=== PATIENT | female | born 1975 | race American Indian/Alaskan Native ===

== ENCOUNTER 2018-02-21 09:31 | Emergency (ER) | payer OTHER ==
[2018-02-21 09:40] VITALS: TEMP 97.7
--- NOTE | 2018-02-21 10:28 | C.PDOC ---
Time Seen by Provider: 02/21/18 10:19 Chief Complaint (Nursing): Headache Past Medical History Vital Signs: Last Vital Signs Temp 97.7 F 02/21/18 09:36 Pulse 90 02/21/18 10:26 Resp 20 02/21/18 10:26 BP 154/109 H 02/21/18 10:26 Pulse Ox 96 02/21/18 10:26 - Medical History PMH: HTN (no meds) - Social History Hx Alcohol Use: Yes Hx Substance Use: No - Immunization History Hx Tetanus Toxoid Vaccination: Yes Hx Influenza Vaccination: Yes Hx Pneumococcal Vaccination: Yes ED Course And Treatment O2 Sat by Pulse Oximetry: 96 Disposition - Disposition Forms: [employer] (Estonian)
[2018-02-21] MEDS ORDERED: Labetalol 25mg/5ml Syringe IVP STA (10:32)
[2018-02-21] MEDS ORDERED: Dexamethasone 4 mg/1 ml IVP STA (10:33)
[2018-02-21] MEDS ORDERED: Magnesium Sulfate 1 gm in D5W 1 GM/100 ML BAG IVPB STA (10:33)
--- NOTE | 2018-02-21 10:39 | C.PDOC ---
History Of Present Illness 43 y/o female comes in complaining of intermittent migraine that is worse than usual for the past 2 weeks. Patient states it is normally relieved with excedrin but it still persists. She notes that pain worsens when she bends forward or lays flat. Patient denies any trauma. Patient has history of hypertension but she has been noncompliant with medications for the past year due to lack of insurance. Denies nausea, vomiting, or other associated symptoms. WORSE THAN USUAL MIGRAINE INTERMIT X 2 WEEKS. PS NORMALLY RELIEVED W EXCEDRIN BUT STILL PERSIST. PAIN WORSE WHEN BENDS FORWARD OR LAYS FLAT. NO TRAUMA. HO HTN BUT NONCOMPLIANT W MEDS X 1 YR DUE TO LACK OF INSURANCE. NO NV, OTHER ASSOC SX EXAM MILD DIST NONTOXIC HEENT NO PHOTOPHOBIA NECK SUPPLE NEURO NO FOCAL DEF REMAINDER NEG Time Seen by Provider: 02/21/18 10:19 Chief Complaint (Nursing): Headache History Per: Patient History/Exam Limitations: no limitations Onset/Duration Of Symptoms: Days Current Symptoms Are (Timing): Still Present Past Medical History Reviewed: Historical Data, Nursing Documentation, Vital Signs Vital Signs: Last Vital Signs Temp 97.7 F 02/21/18 09:36 Pulse 90 02/21/18 10:26 Resp 20 02/21/18 10:26 BP 154/109 H 02/21/18 10:26 Pulse Ox 96 02/21/18 10:28 - Medical History PMH: HTN (no meds) Family History: States: No Known Family Hx - Social History Hx Alcohol Use: Yes Hx Substance Use: No - Immunization History Hx Tetanus Toxoid Vaccination: Yes Hx Influenza Vaccination: Yes Hx Pneumococcal Vaccination: Yes Review Of Systems Except As Marked, All Systems Reviewed And Found Negative. Constitutional: Negative for: Fever, Chills Cardiovascular: Negative for: Chest Pain Respiratory: Negative for: Shortness of Breath Gastrointestinal: Negative for: Nausea, Vomiting Musculoskeletal: Negative for: Neck Pain Skin: Negative for: Rash Neurological: Positive for: Other (Migraine) Physical Exam - Physical Exam Appears: Non-toxic, In Acute Distress (mild distress) Skin: Warm, Dry Head: Atraumatic, Normacephalic Eye(s): bilateral: Normal Inspection, Other (No photophobia) Oral Mucosa: Moist Neck: Supple Chest: Symmetrical Cardiovascular: Rhythm Regular, No Murmur Respiratory: Normal Breath Sounds, No Rales, No Rhonchi, No Wheezing Gastrointestinal/Abdominal: Soft, No Tenderness Extremity: Bilateral: Atraumatic, Normal Color And Temperature, Normal ROM Neurological/Psych: Oriented x3, Normal Speech, Other (No focal deficits) ED Course And Treatment - Laboratory Results Result Diagrams: 02/21/18 11:16 02/21/18 11:16 O2 Sat by Pulse Oximetry: 96 (RA) Pulse Ox Interpretation: Normal - CT Scan/US Head CT Other Rad Studies (CT/US): Read By Radiologist, Radiology Report Reviewed CT/US Interpretation: FINDINGS: HEMORRHAGE: No intracranial hemorrhage. BRAIN: Normal rolle-white matter differentiation and density are appreciated throughout the cerebrum and cerebellum with the brainstem appearing unremarkable as well. There is no mass effect. There is no suspicious extra-axial fluid collection and the midline brain anatomy appears diffusely unremarkable. VENTRICLES: Unremarkable. No hydrocephalus. CALVARIUM: Bilateral parietal foramina are appreciated, right greater than left. The right parietal foramina measures 9 mm. Because of potential associated vascular anomalies, follow-up contrast CT of the head is advised or MRI. PARANASAL SINUSES: Unremarkable as visualized. No significant inflammatory changes. MASTOID AIR CELLS: Unremarkable as visualized. No inflammatory changes. OTHER FINDINGS: None. IMPRESSION: Normal appearing brain parenchyma throughout. Note is made of bilateral parietal foramina with right-sided foraminal large enough to require elective contrast brain imaging either by CT or MRI exclude underlying potential vascular anomaly/pathology. Exam otherwise unremarkable. Progress Note: Head CT and blood work ordered. Patient was given decadron IV, magnesium sulfate IV, reglan IV, Toradol IV, Trandate IV, and tylenol PO. Progress - Re-Evaluation Re-evaluation Note: 02/21/18 11:27 154/98 W/O HTN TX. NEURO INTACT 02/21/18 11:55 FEELS BETTER, NEURO INTACT - Data Reviewed Data Reviewed: Lab, Diagnostic imaging, Old records Disposition Counseled Patient/Family Regarding: Studies Performed, Diagnosis - Disposition Referrals: [facility] [Outside] [facility] [Outside] Disposition: HOME/ ROUTINE Disposition Time: 11:55 Condition: IMPROVED Prescriptions: Hydrochlorothiazide [Microzide] 12.5 mg PO DAILY #30 cap Ibuprofen [Motrin] 600 mg PO Q6 #30 tab Metoclopramide [Reglan] 1 tab PO TID PRN #25 tab PRN Reason: Nausea/Vomiting Instructions: High Blood Pressure (DC), Migraine Headache (DC) Forms: [employer] (Sami) - Clinical Impression Clinical Impression: Migraine, Hypertensive urgency - Scribe Statement The provider has reviewed the documentation as recorded by the Pura Gallo Provider Attestation: All medical record entries made by the Asuncionibleonela were at my direction and personally dictated by me. I have reviewed the chart and agree that the record accurately reflects my personal performance of the history, physical exam, medical decision making, and the department course for this patient. I have also personally directed, reviewed, and agree with the discharge instructions and disposition.
[2018-02-21] MEDS ORDERED: Magnesium Sulfate 1 gm in D5W 1 GM/100 ML BAG IVPB ONE (10:52)
--- NOTE | 2018-02-21 11:12 | CT ---
Date of service: 02/21/2018 PROCEDURE: CT HEAD WITHOUT CONTRAST. HISTORY: Headache HTN COMPARISON: None available. TECHNIQUE: Axial computed tomography images were obtained through the head/brain without intravenous contrast. Radiation dose: Total exam DLP = 1115.86 mGy-cm. This CT exam was performed using one or more of the following dose reduction techniques: Automated exposure control, adjustment of the mA and/or kV according to patient size, and/or use of iterative reconstruction technique. FINDINGS: HEMORRHAGE: No intracranial hemorrhage. BRAIN: Normal rolle-white matter differentiation and density are appreciated throughout the cerebrum and cerebellum with the brainstem appearing unremarkable as well. There is no mass effect. There is no suspicious extra-axial fluid collection and the midline brain anatomy appears diffusely unremarkable. VENTRICLES: Unremarkable. No hydrocephalus. CALVARIUM: Bilateral parietal foramina are appreciated, right greater than left. The right parietal foramina measures 9 mm. Because of potential associated vascular anomalies, follow-up contrast CT of the head is advised or MRI. PARANASAL SINUSES: Unremarkable as visualized. No significant inflammatory changes. MASTOID AIR CELLS: Unremarkable as visualized. No inflammatory changes. OTHER FINDINGS: None. IMPRESSION: Normal appearing brain parenchyma throughout. Note is made of bilateral parietal foramina with right-sided foraminal large enough to require elective contrast brain imaging either by CT or MRI exclude underlying potential vascular anomaly/pathology. Exam otherwise unremarkable.
[2018-02-21] MEDS ORDERED: Labetalol 25mg/5ml Syringe IV STA (11:19)
[2018-02-21 11:22] LABS: BASO # 0.1 K/uL (0.0-0.2); BASO % 1.1 % (0.0-2.0); EOS # 0.1 K/uL (0.0-0.7); EOS % 1.8 % (0.0-4.0); HEMOGLOBIN 12.2 g/dL (11.0-16.0); LYMPH # 2.3 K/uL (1.0-4.3); LYMPH % 33.8 % (20.0-40.0); MEAN CORPUSCULAR HEMOGLOBIN 26.4 pg (27.0-31.0); MEAN CORPUSCULAR HGB CONC 32.6 g/dL (33.0-37.0); MEAN PLATELET VOLUME 9.1 fL (7.2-11.7); MONO # 0.5 K/uL (0.0-0.8); NEUT # 3.9 K/uL (1.8-7.0); NEUT % 56.3 % (50.0-75.0); RBC 4.64 Mil/uL (3.80-5.20); WHITE BLOOD COUNT 6.9 K/uL (4.8-10.8)
[2018-02-21 11:42] LABS: BLOOD UREA NITROGEN 16 mg/dL (7-17); GFR NON-AFRICAN AMERICAN > 60
[2018-02-21 12:53] VITALS: O2SAT 96
[2018-02-21 13:22] VITALS: BP 154/104; PULSE 94; RESP 20
== END 2018-02-21 13:23 | disposition home or self-care (01) ==
LOC: C.ER 09:31
DX: G43.909 Migraine, unspecified, not intractable, without status migrainosus (principal); I16.0 Hypertensive urgency; I10 Essential (primary) hypertension
CPT/HCPCS: 70450; 80048; 85025; 96365; 96375; 99285; J1100; J1885; J2765; J3475